=== PATIENT | female | born 1975 | race Caucasian/White ===

== ENCOUNTER 2022-08-01 10:41 | Outpatient (REF) | payer BC, SELFPAY ==
[2022-08-01 14:01] LABS: MANUAL DIFF FLAG NO
[2022-08-01 14:11] LABS: Basophils Absolute Auto 0.1 X10*3/uL (0.0-0.2); Basophils Percent Auto 1.4 % (0-2); Eosinophils Absolute Auto 0.4 X10*3/uL (0.0-0.4); Eosinophils Percent Auto 4.7 % (0-4); Hematocrit 41.2 % (37.0-47.0); Hemoglobin 13.1 g/dl (12.0-16.0); Imm Gran Abs Auto 0.02 X10*3/uL (0.00-0.03); Imm Gran Pct Auto 0.3 % (0.0-0.4); Lymphocytes Absolute Auto 1.2 X10*3/uL (1.2-4.9); Lymphocytes Percent Auto 16.8 % (20-40); Mean Corpuscular HGB Conc 31.8 g/dl (31.0-35.0); Mean Corpuscular Hemoglobin 27.7 pg (27.0-33.0); Mean Corpuscular Volume 87.1 fL (80.0-98.0); Mean Platelet Volume 11.8 fL (9.4-12.3); Monocytes Absolute Auto 0.4 X10*3/uL (0.1-1.2); Monocytes Percent Auto 5.3 % (2-11); Neutrophils Absolute Auto 5.3 x10*3/uL (2.0-8.3); Neutrophils Percent Auto 71.5 % (45-73); Platelet Count 293 X10*3/uL (160-400); Red Blood Count 4.73 X10*6/uL (4.20-5.50); Red Cell Distribution Width 14.2 % (11.0-16.0); White Blood Count 7.4 X10*3/uL (4.8-10.8)
[2022-08-01 14:24] LABS: Alanine Aminotransferase 16 U/L (0-31); Alkaline Phosphatase 77 U/L (39-117); Anion Gap 13 (12-20); Aspartate Amino Transferase 16 U/L (5-31); Bilirubin Total 0.5 mg/dL (0.0-1.0); Blood Urea Nitrogen 9 mg/dL (9-16); Carbon Dioxide 25 mmol/L (22-29); Chloride 105 mmol/L (96-108); Cholesterol 230 mg/dL; Estimated Glomerular Filt Rate > 60; Glucose Random 85 mg/dL (60-115); HDL Cholesterol 42 mg/dL; LDL Cholesterol Calculated 147 mg/dl; Sodium 139 mmol/L (135-145); Triglycerides 206 mg/dL
[2022-08-01 14:41] LABS: Free T4 (Free Thyroxine) 0.86 ng/dL (0.71-1.85); Thyroid Stimulating Hormone 11.05 uIU/mL (0.32-4.0)
== END 2022-08-01 10:42 | disposition home or self-care (01) ==
LOC: HO.10HDL 10:41
PROVIDERS: Visit Provider Internal Medicine
DX: Z00.00 Encounter for general adult medical examination without abnormal findings (principal); Z86.39 Personal history of other endocrine, nutritional and metabolic disease
CPT/HCPCS: 36415; 80053; 80061; 84439; 84443; 85025

== ENCOUNTER 2022-08-19 07:27 | Outpatient (REF) | payer BC, SELFPAY ==
[2022-08-19 07:50] LABS: MANUAL DIFF FLAG NO
[2022-08-19 08:05] LABS: Basophils Absolute Auto 0.1 X10*3/uL (0.0-0.2); Basophils Percent Auto 1.3 % (0-2); Eosinophils Absolute Auto 0.3 X10*3/uL (0.0-0.4); Eosinophils Percent Auto 5.3 % (0-4); Hematocrit 39.4 % (37.0-47.0); Hemoglobin 12.6 g/dl (12.0-16.0); Imm Gran Abs Auto 0.01 X10*3/uL (0.00-0.03); Imm Gran Pct Auto 0.2 % (0.0-0.4); Lymphocytes Absolute Auto 1.2 X10*3/uL (1.2-4.9); Lymphocytes Percent Auto 23.4 % (20-40); Mean Corpuscular Hemoglobin 26.9 pg (27.0-33.0); Mean Platelet Volume 10.8 fL (9.4-12.3); Monocytes Absolute Auto 0.8 X10*3/uL (0.1-1.2); Monocytes Percent Auto 14.9 % (2-11); Neutrophils Absolute Auto 2.9 x10*3/uL (2.0-8.3); Neutrophils Percent Auto 54.9 % (45-73); Platelet Count 230 X10*3/uL (160-400); Red Blood Count 4.69 X10*6/uL (4.20-5.50); Red Cell Distribution Width 14.3 % (11.0-16.0); White Blood Count 5.3 X10*3/uL (4.8-10.8)
[2022-08-19 08:27] LABS: Alanine Aminotransferase 19 U/L (0-31); Albumin Level 3.7 g/dL (3.5-5.0); Alkaline Phosphatase 76 U/L (39-117); Anion Gap 11 (12-20); Aspartate Amino Transferase 20 U/L (5-31); Bilirubin Direct 0.1 mg/dL (0.0-0.5); Bilirubin Total 0.4 mg/dL (0.0-1.0); Blood Urea Nitrogen 8 mg/dL (9-16); Calcium 8.4 mg/dL (8.4-10.2); Carbon Dioxide 23 mmol/L (22-29); Chloride 109 mmol/L (96-108); Cholesterol 174 mg/dL; Estimated Glomerular Filt Rate > 60; Glucose Random 95 mg/dL (60-115); HDL Cholesterol 38 mg/dL; LDL Cholesterol Calculated 119 mg/dl; Potassium 4.1 mmol/L (3.3-5.1); Sodium 139 mmol/L (135-145); Total Protein 7.2 g/dL (6.5-8.0); Triglycerides 89 mg/dL
[2022-08-21 04:11] LABS: HBsAGNum1 0.34 S/CO (0.00-0.99); Hepatitis B Core Antibody Nonreactive (Nonreactive); Hepatitis B Surface Antigen Negative (Negative); ~HepC Num1 0.25 S/CO (0.00-0.79); ~Hepatitis B Surface Antibody NONREACTIVE (Nonreactive); ~Hepatitis C Antibody Nonreactive (Nonreactive)
== END 2022-08-19 07:28 | disposition home or self-care (01) ==
LOC: HO.LAB 07:27
PROVIDERS: PCP Internal Medicine; Visit Provider Physician Assistant Medical
DX: L40.0 Psoriasis vulgaris (principal)
CPT/HCPCS: 36415; 80048; 80061; 80076; 85025; 86704; 86706; 86803; 87340

== ENCOUNTER 2022-08-30 16:10 | Outpatient (REF) | payer BC, SELFPAY ==
[2022-09-01 15:14] LABS: TS Negative Control Passed; TS Panel A 0; TS Panel B 0; TS Positive Control Passed; TSpotTB Negative (Negative)
== END 2022-08-30 16:11 | disposition home or self-care (01) ==
LOC: HO.LAB 16:10
PROVIDERS: PCP Internal Medicine; Visit Provider Physician Assistant Medical
DX: L40.0 Psoriasis vulgaris (principal)
CPT/HCPCS: 36415; 86481

== ENCOUNTER 2023-01-18 04:46 | Emergency (ER) | payer BC, SELFPAY ==
--- NOTE | 2023-01-18 | ECG_ITS ---
Test Reason : chest pain Blood Pressure : / mmHG Vent. Rate : 103 BPM Atrial Rate : 103 BPM P-R Int : 138 ms QRS Dur : 082 ms QT Int : 338 ms P-R-T Axes : 039 048 038 degrees QTc Int : 442 ms Sinus tachycardia Otherwise normal ECG No previous ECGs available Referred By: Generic ED Physician Electronically Signed By:DARIELA MUNGUIA
--- NOTE | ~2023-01-18 | XR_ITS ---
EXAMINATION: XR CHEST CLINICAL INFORMATION: Chest pain/shortness of breath COMPARISON: None available. TECHNIQUE: Frontal view of the chest was obtained. FINDINGS: Some minimal right basilar atelectasis is present. No significant abnormality is noted involving the heart, lungs, mediastinum, bony thorax or soft tissues. XR/XR chest 1V IMPRESSION: No acute intrathoracic disease.
[2023-01-18 04:55] VITALS: BP 146/92; PULSE 103; RESP 19; TEMP 36.4; O2SAT 98; BMI 46.2
[2023-01-18 05:04] LABS: Basophils Absolute Auto 0.1 X10*3/uL (0.0-0.2); Basophils Percent Auto 1.4 % (0-2); Eosinophils Absolute Auto 0.4 X10*3/uL (0.0-0.4); Eosinophils Percent Auto 7.5 % (0-4); Hematocrit 41.3 % (37.0-47.0); Hemoglobin 13.3 g/dl (12.0-16.0); Imm Gran Abs Auto 0.01 X10*3/uL (0.00-0.03); Imm Gran Pct Auto 0.2 % (0.0-0.4); Lymphocytes Absolute Auto 1.4 X10*3/uL (1.2-4.9); Lymphocytes Percent Auto 24.9 % (20-40); MANUAL DIFF FLAG NO; Mean Corpuscular HGB Conc 32.2 g/dl (31.0-35.0); Mean Corpuscular Hemoglobin 27.5 pg (27.0-33.0); Mean Corpuscular Volume 85.3 fL (80.0-98.0); Mean Platelet Volume 10.8 fL (9.4-12.3); Monocytes Absolute Auto 0.4 X10*3/uL (0.1-1.2); Monocytes Percent Auto 6.9 % (2-11); Neutrophils Absolute Auto 3.3 x10*3/uL (2.0-8.3); Neutrophils Percent Auto 59.1 % (45-73); Platelet Count 246 X10*3/uL (160-400); Red Blood Count 4.84 X10*6/uL (4.20-5.50); Red Cell Distribution Width 14.6 % (11.0-16.0); White Blood Count 5.6 X10*3/uL (4.8-10.8)
[2023-01-18 05:23] LABS: Alanine Aminotransferase 16 U/L (0-31); Albumin Level 3.8 g/dL (3.5-5.0); Alkaline Phosphatase 68 U/L (39-117); Anion Gap 13 (12-20); Aspartate Amino Transferase 15 U/L (5-31); Bilirubin Direct 0.2 mg/dL (0.0-0.5); Bilirubin Total 0.5 mg/dL (0.0-1.0); Blood Urea Nitrogen 9 mg/dL (9-16); Calcium 8.9 mg/dL (8.4-10.2); Carbon Dioxide 22 mmol/L (22-29); Chloride 109 mmol/L (96-108); Creatinine Clr Calc Pharmacy 109.3; Estimated Glomerular Filt Rate > 60; Glucose Random 105 mg/dL (60-115); Lipase 46 U/L (8-78); Potassium 3.9 mmol/L (3.3-5.1); Sodium 140 mmol/L (135-145); Total Protein 7.9 g/dL (6.5-8.0)
[2023-01-18 05:31] LABS: Troponin-I High Sensitivity < 2.7 ng/L (<3.5-17.0)
--- NOTE | 2023-01-18 06:32 | PC.NURSE ---
Pt a&o, reports having intermittent chest pain 5/10 no other symptoms, reports this is new for her, pt able to complete full sentence, ambulate with a steady gait, neuro are intact, no sign of distress. Will continue to monitor. Pt awaiting to be seen by provider.
[2023-01-18 07:23] VITALS: BP 108/90; PULSE 82; RESP 13; TEMP 36.7; O2SAT 95
[2023-01-18 08:33] LABS: D Dimer High Sensitivity < 150 NG/ML
[2023-01-18 08:55] LABS: Troponin-I High Sensitivity < 2.7 ng/L (<3.5-17.0)
--- NOTE | 2023-01-18 09:03 | ED_ITS ---
HPI - Chest Pain General Chief Complaint: Chest Pain Stated Complaint: chest discomfort Time Seen by Provider: 01/18/23 06:39 Source: patient Mode of arrival: ambulatory Limitations: no limitations History of Present Illness HPI narrative: This is a 47 year old female hx off obesity presenting to the ED w/ complaints of L sided CP and occasional SOB X2-3 months worsening. Sometimes pain radiates to LUE. Patient reports that at times she wakes from her sleep from discomfort and has had a lot of sleepless nights due to pain. Pain is present the majority of the time however not always present. Patient doesn't have a hx of PE or DVT. 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 Denies nausea, vomiting, abd pain, headache, vision changes, weakness, trauma, weakness. Related Data Previous Rx's Medication Instructions Recorded ketorolac 10 mg tablet 10 mg PO TID PRN pain 5 days #15 01/18/23 tabs Allergies Allergy/AdvReac Type Severity Reaction Status Date / Time Unable to Assess Allergy Unverified 01/18/23 06:43 Review of Systems 2 Review of Systems: Constitutional : No Weight loss, No Fever, No Chills, No Fatigue, No Malaise ENT/Mouth : No sore throat, No Rhinorrhea Eyes: No Eye Pain, No Swelling, No Redness Cardiovascular : + Chest Pain, + SOB, No Dyspnea on Exertion, No Orthopnea, No Edema, No Palpitations Respiratory : No Cough, No Sputum, No Wheezing Gastrointestinal : No Nausea, No Vomiting, No Diarrhea, No Constipation, No abdominal Pain, No Hematochezia, No Melena Genitourinary : No Dysuria, No Urinary Frequency, No Hematuria, Musculoskeletal : No joint pain, No Myalgias, No Joint Swelling Skin : No Skin Lesions, No rash Neuro : No Weakness, No Numbness, No Dizziness, No Headache Psych : No Anxiety/Panic, No Depression All other systems reviewed and are negative Yes all other systems are reviewed and are negative [facility] Past Medical History Attestation statement: The following information was validated with the patient. Source: old records reviewed and nursing notes reviewed Social History Social History Smoked in Last 30 Days: Yes Use of substances other than those prescribed or required for medical reasons: No Advance Directives: No Advance Directives Information Provided: Yes Physical Exam 2 Vital Signs: Vital Signs: Last Vital Signs Temp 98.1 F 09/21/23 07:23 Pulse 82 01/18/23 07:23 Resp 13 01/18/23 07:23 BP 108/90 H 01/18/23 07:23 Pulse Ox 95 01/18/23 07:23 O2 Del Method Room Air 01/18/23 07:23 BMI result Body Mass Index 46.2 vss Appearance: Alert.? Oriented X3.? No acute distress.? Head: Normocephalic, atraumatic, no step-offs or deformities Eyes: Pupils equal, round and reactive to light.? Neck: Normal inspection.? Neck supple.? CVS: Normal heart rate and rhythm.? Pulses normal.?Left anterior chest wall tenderness, reproducible with palpation. No overlying skin changes or edema. No crepitus or stepoffs. No flail chest. Respiratory: No respiratory distress.? Breath sounds normal.? Abdomen: Soft and nontender.? Skin: Skin warm and dry.? Normal skin color.? Normal skin turgor.? Extremities: No lower extremity edema.? No calf ttp. 5/5 strength to bilateral upper and lower extremities Neuro: Oriented X 3.? No motor deficit.? No sensory deficit. CN 2-12 intact Course Reevaluation(s) Reevaluation #1: CBC unremarkable. Chemistry no acute findings requiring intervention. Troponin negative x2 with nonischemic EKG. Lipase within normal limits. D-dimer negative no indication for CTA. Likely musculoskeletal pain. Pending chest x- ray. Time: 09:09 Reevaluation #2: X-ray no acute intrathoracic disease. Patient feeling better. I suspect this is noncardiac/musculoskeletal. Will discharge her with home Toradol. Educated patient on diagnosis and treatment plan, answered all question, patient verbalizes understanding. At this time patient will be discharged home, advised to return with new or worsening symptoms. Educated on worrisome signs and symptoms and when to return. At this time I feel comfortable discharge home. Time: 11:11 Medications Administered Discontinued Medications Generic Name Dose Route Start Last Admin Trade Name Freq PRN Reason Stop Dose Admin Ketorolac Tromethamine 30 mg 01/18/23 09:19 01/18/23 09:26 Ketorolac Tromethamine 15 Mg/Ml Vial IVPUSH 01/18/23 09:20 30 mg ONCE ONE Administration Medical Decision Making Medical Decision Making [facility] Narrative: 30 47 year old female presents w/ L sided cp and a/c sob PE benign, Left anterior chest wall tenderness, reproducible with palpation. No overlying skin changes or edema. No crepitus or stepoffs. No flail chest. Likely non cardiac related cp vs musculoskeletal pain versus viral illness. Unlikely PE, ACS, dissection, flail chest, pneumonia, pleural effusions. Unlikely CHF Plan labs, imaging Differential Diagnosis Differential Diagnoses: The differential diagnosis associated with the presentation includes Likely non cardiac related cp vs musculoskeletal pain versus viral illness. Unlikely PE, ACS, dissection, flail chest, pneumonia, pleural effusions. Unlikely CHF Admission/Observation Consideration of admission/observation: Escalation of care including admission/observation considered Unlikely Lab Data [facility] Lab Attestation statement: I reviewed the patient's lab results. 01/18/23 04:59 01/18/23 04:59 Labs: Lab Results 01/18/23 01/18/23 Range/Units 04:59 08:17 WBC 5.6 (4.8-10.8) X10*3/uL RBC 4.84 (4.20-5.50) X10*6/uL Hgb 13.3 (12.0-16.0) g/dl Hct 41.3 (37.0-47.0) % MCV 85.3 (80.0-98.0) fL MCH 27.5 (27.0-33.0) pg MCHC 32.2 (31.0-35.0) g/dl RDW 14.6 (11.0-16.0) % Plt Count 246 (160-400) X10*3/uL MPV 10.8 (9.4-12.3) fL Immature Gran % (Auto) 0.2 (0.0-0.4) % Neut % (Auto) 59.1 (45-73) % Lymph % (Auto) 24.9 (20-40) % Dickens % (Auto) 6.9 (2-11) % Eos % (Auto) 7.5 H (0-4) % Baso % (Auto) 1.4 (0-2) % Lymph # (Auto) 1.4 (1.2-4.9) X10*3/uL Dickens # (Auto) 0.4 (0.1-1.2) X10*3/uL Eos # (Auto) 0.4 (0.0-0.4) X10*3/uL Baso # (Auto) 0.1 (0.0-0.2) X10*3/uL Abs Immat Gran (auto) 0.01 (0.00-0.03) X10*3/uL Absolute Neuts (auto) 3.3 (2.0-8.3) x10*3/uL Absolute Nucleated RBC 0.000 (0.0-0.012) X10*3/uL Nucleated RBC % (auto) 0.0 (0.0-0.2) /100WBC D-Dimer High Sensitivty < 150 NG/ML Sodium 140 (135-145) mmol/L Potassium 3.9 (3.3-5.1) mmol/L Chloride 109 H (96-108) mmol/L Carbon Dioxide 22 (22-29) mmol/L Anion Gap 13 (12-20) BUN 9 (9-16) mg/dL Creatinine 0.86 (0.5-1.4) mg/dL Estim Creat Clear Calc 109.3 Estimated GFR > 60 Random Glucose 105 (60-115) mg/dL Calcium 8.9 (8.4-10.2) mg/dL Total Bilirubin 0.5 (0.0-1.0) mg/dL Direct Bilirubin 0.2 (0.0-0.5) mg/dL AST 15 (5-31) U/L ALT 16 (0-31) U/L Alkaline Phosphatase 68 (39-117) U/L Troponin I High Sens < 2.7 < 2.7 (<3.5-17.0) ng/L Total Protein 7.9 (6.5-8.0) g/dL Albumin 3.8 (3.5-5.0) g/dL Lipase 46 (8-78) U/L Independent Interpretation I performed an independent interpretation of an: EKG (Jugular rate of 103, AR normal, QRS normal, QT/QTC normal. EKG normal sinus rhythm no ST elevations or inversions concerning for acute ischemia) and Plain X-Ray Radiology Impression Discussion of test interpretation with radiology: I have reviewed the radiologist's reading. Prescription Management I considered prescription management with: Pain Medication Discharge Plan Discharge Clinical Impression: Chest pain, Shortness of breath Patient Disposition: Home, Self-Care Instructions: Chest Pain (ED), Chest Wall Pain (ED) Additional Instructions: Take your medications as prescribed. If you were prescribed antibiotics today, it is important that you take your medication to their entirety, do not skip any doses, do not finish them early. Follow-up with your primary care provider this week. Return to the emergency department with new or worsening symptoms. Such as fevers, chills, chest pain, shortness of breath, nausea, vomiting, dizziness, headache, vision changes, lethargy In case of emergency call 911 Prescriptions: New ketorolac 10 mg tablet 10 mg PO TID PRN (Reason: pain) 5 Days Qty: 15 0RF Referrals: Physician,Unknown J [Primary Care Provider] - 2 days Stand Alone Forms: Work/School Release Interventions: ED Discharge Assessment Last Done: 01/18/23 10:48 Discharge Date/Time: 01/18/23 10:50
[2023-01-18] MEDS: Ketorolac Tromethamine 15 MG/ML VIAL 30 MG IVPUSH (09:26)
== END 2023-01-18 10:50 | disposition home or self-care (01) ==
PROVIDERS: Physician Assistant; Emergency Provider Emergency Medicine
DX: R07.9 Chest pain, unspecified (principal); R06.02 Shortness of breath
CPT/HCPCS: 36415; 71045; 80048; 80076; 83690; 84484; 85025; 85379; 93005; 96374; 99284; 99285; J1885

== ENCOUNTER 2023-01-23 06:16 | Outpatient (REF) | payer BC, SELFPAY ==
[2023-01-23 08:07] LABS: Cholesterol 191 mg/dL (<200); HDL Cholesterol 44 mg/dL (>40); LDL Cholesterol Calculated 122 mg/dL (<100); Triglycerides 126 mg/dL (<150)
[2023-01-23 08:28] LABS: Free T4 (Free Thyroxine) 0.88 ng/dL (0.71-1.85); Thyroid Stimulating Hormone 7.99 uIU/mL (0.32-4.0)
[2023-01-25 05:48] LABS: Thyroid Peroxidase Antibodies 1 IU/mL (<9)
== END 2023-01-23 06:17 | disposition home or self-care (01) ==
LOC: HO.LAB 06:16
PROVIDERS: PCP Internal Medicine; Visit Provider Internal Medicine
DX: E03.9 Hypothyroidism, unspecified (principal); E78.00 Pure hypercholesterolemia, unspecified
CPT/HCPCS: 36415; 80061; 84439; 84443; 86376

== ENCOUNTER 2024-02-18 10:20 | Outpatient (REF) | payer SELFPAY ==
--- NOTE | ~2024-02-18 | XR_ITS ---
EXAMINATION: XR CHEST 2 VIEWS CLINICAL INFORMATION: Cough rule out pneumonia. Patient states persistent cold and flu symptoms. COMPARISON: XR Chest 01/18/2023 TECHNIQUE: 2 views of the chest were obtained. FINDINGS: The lungs are well expanded. There is airspace consolidation in the right middle lobe silhouetting the right heart border. No pleural effusion. Cardiac silhouette is within normal limits. XR/XR chest 2V IMPRESSION: Right middle lobe pneumonia. Follow-up until resolution is advised. Electronically signed by: Colin Hess MD 04/10/2024 01:56 PM [facility]
[2024-02-18 11:14] LABS: MANUAL DIFF FLAG NO
[2024-02-18 11:33] LABS: Basophils Absolute Auto 0.1 X10*3/uL (0.0-0.2); Basophils Percent Auto 1.1 % (0-2); Eosinophils Absolute Auto 0.6 X10*3/uL (0.0-0.4); Eosinophils Percent Auto 6.8 % (0-4); Hematocrit 39.6 % (37.0-47.0); Hemoglobin 13.1 g/dl (12.0-16.0); Imm Gran Abs Auto 0.04 X10*3/uL (0.00-0.03); Imm Gran Pct Auto 0.5 % (0.0-0.4); Lymphocytes Absolute Auto 1.3 X10*3/uL (1.2-4.9); Lymphocytes Percent Auto 16.5 % (20-40); Mean Corpuscular HGB Conc 33.1 g/dl (31.0-35.0); Mean Corpuscular Hemoglobin 29.4 pg (27.0-33.0); Mean Corpuscular Volume 88.8 fL (80.0-98.0); Mean Platelet Volume 10.7 fL (9.4-12.3); Monocytes Absolute Auto 0.4 X10*3/uL (0.1-1.2); Monocytes Percent Auto 5.3 % (2-11); Neutrophils Absolute Auto 5.6 x10*3/uL (2.0-8.3); Neutrophils Percent Auto 69.8 % (45-73); Platelet Count 261 X10*3/uL (160-400); Red Blood Count 4.46 X10*6/uL (4.20-5.50); Red Cell Distribution Width 14.2 % (11.0-16.0)
[2024-02-18 12:33] LABS: Alanine Aminotransferase 24 U/L (0-31); Albumin Level 3.9 g/dL (3.5-5.0); Alkaline Phosphatase 62 U/L (39-117); Anion Gap 13 (12-20); Aspartate Amino Transferase 29 U/L (5-31); Bilirubin Total 0.4 mg/dL (0.0-1.0); Blood Urea Nitrogen 9 mg/dL (9-16); Calcium 8.9 mg/dL (8.4-10.2); Carbon Dioxide 24 mmol/L (22-29); Chloride 106 mmol/L (96-108); Cholesterol 223 mg/dL (<200); Estimated Glomerular Filt Rate > 60; Glucose Random 86 mg/dL (60-115); Sodium 139 mmol/L (135-145); Total Protein 8.2 g/dL (6.5-8.0)
[2024-02-18 12:54] LABS: Free T4 (Free Thyroxine) 0.72 ng/dL (0.71-1.85); Thyroid Stimulating Hormone 14.32 uIU/mL (0.32-4.0)
== END 2024-02-18 10:21 | disposition home or self-care (01) ==
LOC: HO.XRAY 10:20
PROVIDERS: PCP Internal Medicine; Visit Provider Internal Medicine
DX: J45.909 Unspecified asthma, uncomplicated (principal); R05.9 Cough, unspecified; L40.9 Psoriasis, unspecified; E03.9 Hypothyroidism, unspecified
CPT/HCPCS: 36415; 71046; 80053; 82465; 84439; 84443; 85025

== ENCOUNTER 2024-09-12 15:04 | Outpatient (AMB) | payer BC, SELFPAY ==
--- NOTE | 2024-09-12 15:07 | MHC.PC.OV ---
Vital Signs 09/12/24 15:11 09/12/24 15:55 Height 5 ft 6 in Weight 134.263 kg BMI 47.8 BP 146/88 H 132/90 H Respiration 18 Pulse 98 Pulse Source Pulse Oximeter Temp 98.4 F Temp Source Temporal Artery Scan Pulse Oximetry (%) 99 Oxygen Delivery Method Room Air Intake Visit Reasons: Routine - see comments Inspector Quality Assurance Required: No Accompanied by: Self / Same As Patient Allergies Unable to Assess Allergy (Unverified 09/12/24 15:10) Medication List - Last Reconciled 09/12/24 by HECTOR Sullivan clobetasol 0.05% 1 appl topical BID fluticasone propion-salmeterol 100-50 mcg/dose (Wixela Inhub) inhalation levothyroxine 75 mcg PO DAILY ondansetron 4 mg PO Q8H PRN tirzepatide (Mounjaro) 2.5 mg (0.5 mL) subcut QWEEK HPI HPI Comments History of Present Illness Details 49-year-old female with history of hypothyroidism, psoriasis, mild intermittent asthma psoriasis, 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 She is concerned about her weight. Currently weighs 295 lb and has been working hard to lose weight. She has not lost or gained any weight since her last visit in January of last year. She has been eating healthier, bringing her own lunch which will consist of a low-calorie wrap, salad, cheese and pepperoni. She states she previously was eating fast food and snacks. She does follow healthy dinner but reports eating late secondary to her work schedule. Her job is sedentary but she has also been trying to go to the gym 4 times weekly. She has been only the treadmill with a 2% incline for 35 minutes and then circuit training as well as a rowing machine. She has also had significant life stress. She reports exercising is difficult secondary to her sciatica and footdrop related to the nerve sheath tumor. She did follow with [facility] who recommended surgery to remove the tumor however given the relation to the L5 nerve root was told she could possibly end up paralyzed and ultimately did not go through with the procedure at the recommendation of the neurosurgeon. Biopsy was benign She had also been following with a cigar packer and picker but states she needs a new referral due to insurance issues. She had been using high-dose clobetasol for her psoriasis and is not getting any relief. She states she was supposed to be starting an injection though she is not sure of the name for the psoriasis. [facility] Medical History (Updated 09/12/24 @ 16:01 by HECTOR Sullivan) Hypertension Left foot drop Left sided sciatica Psoriasis Morbid obesity Hypothyroidism Review of Systems Const All systems reviewed & are unremarkable except as noted in HPI and below Physical exam (Primary Care) Vital Signs: Last Vital Signs Temp 98.4 F 09/12/24 15:11 Pulse 98 09/12/24 15:11 Resp 18 09/12/24 15:11 BP 132/90 H 09/12/24 15:55 Pulse Ox 99 09/12/24 15:11 Oxygen Delivery Method Room Air 09/12/24 15:11 BMI result Body Mass Index 47.8 Const Other: Constitutional - Awake and Alert, No apparent distress Eyes - PERRL, exophthalmos Cardiovascular - S1S2, RRR, No edema Respiratory - Normal lung expansion, Normal respiratory effort, No respiratory distress, CTA bilaterally Extremities - no calf tenderness bilaterally, no swelling Skin - Warm/Dry Neurological - Alert & oriented x3, left foot drop, 4/5 strength LLE Psychological - Appropriate affect Coding Level of Care Code New Pt Level 4 (24429) Complex EM visit Add On G2211 Diagnoses Hypothyroidism E03.9 Morbid obesity E66.01 Psoriasis L40.9 Hypertension I10 Left sided sciatica M54.32 Assessment & Plan Assessment & Plan (1) Hypothyroidism: Code(s): E03.9 - Hypothyroidism, unspecified Category: Medical Plan: TSH with reflex free T4 ordered. Continue levothyroxine, dose to be adjusted as appropriate pending results. We will continue working on weight loss as below (2) Morbid obesity: Code(s): E66.01 - Morbid (severe) obesity due to excess calories Category: Medical Plan: Has a making significant efforts towards weight loss with limited results. Encouraged to continue with healthy diet rich in protein, vegetables, and fruits. Avoid unhealthy fats, sugars, and highly processed foods. Encouraged to continue with her routine at the gym. Exercise unfortunately is limited given her history of the nerve sheath tumor contiguous with the L5 nerve root resulting in significant physical disability in the left lower extremity. I do feel the patient would benefit from a GLP 1 agonist to prevent morbidity and mortality and as a result have ordered tirzepatide. (3) Psoriasis: Code(s): L40.9 - Psoriasis, unspecified Category: Medical Plan: Unresponsive to super high potency steroids. Referred to Dermatology for further evaluation and management. It is likely the patient will require T spot prior to initiating any biologic therapy which is ordered for future collection. (4) Hypertension: Code(s): I10 - Essential (primary) hypertension Category: Medical Plan: New onset. Improved with recheck to 132/90. Recommend continuing efforts towards weight loss and will recheck blood pressure in 1 month. If this remains elevated, we will consider antihypertensive therapy. Recommend ongoing lifestyle modifications as above. (5) Left sided sciatica: Code(s): M54.32 - Sciatica, left side Category: Medical Plan: Complicated by nerve sheath tumor. Advised to follow-up with neurosurgery should symptoms progress. Otherwise, we will manage with lifestyle modifications such as regular exercise and Tylenol/ibuprofen as needed. Plan Follow-up in 1 month to discuss weight loss as well as hypertension. Labs to be completed today. Referral placed to Dermatology. Will trial GLP 1 for weight loss. Orders: Orders Basic Metabolic Panel Today E03.9 - Hypothyroidism, unspecified, E66.01 - Morbid (severe) obesity due to excess calories, L40.9 - Psoriasis, unspecified, Z13.1 - Encounter for screening for diabetes mellitus, Z13.220 - Encounter for screening for lipoid disorders Complete Blood Count Auto Diff Today E03.9 - Hypothyroidism, unspecified, E66.01 - Morbid (severe) obesity due to excess calories, L40.9 - Psoriasis, unspecified, Z13.1 - Encounter for screening for diabetes mellitus, Z13.220 - Encounter for screening for lipoid disorders Hemoglobin A1c Today E03.9 - Hypothyroidism, unspecified, E66.01 - Morbid (severe) obesity due to excess calories, L40.9 - Psoriasis, unspecified, Z13.1 - Encounter for screening for diabetes mellitus, Z13.220 - Encounter for screening for lipoid disorders Lipid Panel Today E03.9 - Hypothyroidism, unspecified, E66.01 - Morbid (severe) obesity due to excess calories, L40.9 - Psoriasis, unspecified, Z13.1 - Encounter for screening for diabetes mellitus, Z13.220 - Encounter for screening for lipoid disorders TSH reflex Free T4 Today E03.9 - Hypothyroidism, unspecified, E66.01 - Morbid (severe) obesity due to excess calories, L40.9 - Psoriasis, unspecified, Z13.1 - Encounter for screening for diabetes mellitus, Z13.220 - Encounter for screening for lipoid disorders Liver Panel Today E03.9 - Hypothyroidism, unspecified, E66.01 - Morbid (severe) obesity due to excess calories, L40.9 - Psoriasis, unspecified, Z13.1 - Encounter for screening for diabetes mellitus, Z13.220 - Encounter for screening for lipoid disorders Vitamin D 25-OH Total Today E03.9 - Hypothyroidism, unspecified, E66.01 - Morbid (severe) obesity due to excess calories, L40.9 - Psoriasis, unspecified, Z13.1 - Encounter for screening for diabetes mellitus, Z13.220 - Encounter for screening for lipoid disorders T Spot TB 09/15/24 Z11.1 - Encounter for screening for respiratory tuberculosis Referrals Dermatology Referral L40.9 - Psoriasis, unspecified Medications: New ondansetron 4 mg PO Q8H PRN 30 tabs 0RF nausea and vomiting tirzepatide (Mounjaro) for 4 weeks 2.5 mg (0.5 mL) subcut QWEEK 2 mL 0RF E66.01 - Morbid (severe) obesity due to excess calories, M21.372 - Foot drop, left foot, M54.32 - Sciatica, left side
[2024-09-12 15:11] VITALS: BP 146/88; PULSE 98; RESP 18; TEMP 36.9; O2SAT 99; BMI 47.8
[2024-09-12 15:55] VITALS: BP 132/90
== END 2024-09-12 16:03 | disposition home or self-care (01) ==
LOC: HO.HMCHD 15:05
PROVIDERS: PCP Physician Assistant; Visit Provider Physician Assistant
DX: E03.9 Hypothyroidism, unspecified (principal); E66.01 Morbid (severe) obesity due to excess calories; L40.9 Psoriasis, unspecified; I10 Essential (primary) hypertension; M54.32 Sciatica, left side

== ENCOUNTER 2024-09-12 15:04 | Outpatient (REF) | payer BC, SELFPAY ==
[2024-09-12 16:31] LABS: MANUAL DIFF FLAG NO
[2024-09-12 16:44] LABS: Basophils Absolute Auto 0.1 X10*3/uL (0.0-0.2); Eosinophils Absolute Auto 0.6 X10*3/uL (0.0-0.4); Eosinophils Percent Auto 7.7 % (0-4); Hematocrit 38.7 % (37.0-47.0); Imm Gran Abs Auto 0.04 X10*3/uL (0.00-0.03); Imm Gran Pct Auto 0.5 % (0.0-0.4); Lymphocytes Absolute Auto 1.6 X10*3/uL (1.2-4.9); Mean Corpuscular HGB Conc 33.6 g/dl (31.0-35.0); Mean Corpuscular Hemoglobin 29.1 pg (27.0-33.0); Mean Corpuscular Volume 86.8 fL (80.0-98.0); Mean Platelet Volume 10.5 fL (9.4-12.3); Monocytes Absolute Auto 0.5 X10*3/uL (0.1-1.2); Monocytes Percent Auto 6.5 % (2-11); Neutrophils Absolute Auto 5.1 x10*3/uL (2.0-8.3); Neutrophils Percent Auto 64.3 % (45-73); Platelet Count 251 X10*3/uL (160-400); Red Blood Count 4.46 X10*6/uL (4.20-5.50); Red Cell Distribution Width 13.6 % (11.0-16.0)
[2024-09-12 16:45] LABS: Estimated Average Glucose 103 mg/dL; Hemoglobin A1C 113.4291 umol/L; Hemoglobin A1c % 5.2 % (<6.0); Total Hemoglobin (HGBA1C) 3374.1203 umol/L
[2024-09-12 17:10] LABS: Alanine Aminotransferase 18 U/L (0-31); Albumin Level 3.8 g/dL (3.5-5.0); Alkaline Phosphatase 65 U/L (39-117); Anion Gap 13 (12-20); Aspartate Amino Transferase 19 U/L (5-31); Bilirubin Direct 0.1 mg/dL (0.0-0.5); Bilirubin Total 0.4 mg/dL (0.0-1.0); Blood Urea Nitrogen 10 mg/dL (9-16); Calcium 8.7 mg/dL (8.4-10.2); Carbon Dioxide 22 mmol/L (22-29); Chloride 108 mmol/L (96-108); Cholesterol 211 mg/dL (<200); Estimated Glomerular Filt Rate > 60; Glucose Random 81 mg/dL (60-115); HDL Cholesterol 47 mg/dL (>40); LDL Cholesterol Calculated 136 mg/dL (<100); Potassium 3.8 mmol/L (3.3-5.1); Sodium 139 mmol/L (135-145); Total Protein 8.2 g/dL (6.5-8.0); Triglycerides 142 mg/dL (<150)
[2024-09-12 17:26] LABS: TSH reflex Free T4 11.28 uIU/mL (0.32-4.0); Vitamin D 25-OH Total 9.4 ng/mL (>30)
[2024-09-12 18:01] LABS: Free T4 (Free Thyroxine) 0.98 ng/dL (0.71-1.85)
[2024-09-15 17:03] LABS: TS Negative Control Passed; TS Panel A 1; TS Panel B 0; TS Positive Control Passed; TSpotTB Negative (Negative)
== END 2024-09-12 15:05 | disposition home or self-care (01) ==
LOC: HO.LAB 15:04
PROVIDERS: PCP Physician Assistant; Visit Provider Physician Assistant
DX: E66.01 Morbid (severe) obesity due to excess calories (principal); E03.9 Hypothyroidism, unspecified; Z13.1 Encounter for screening for diabetes mellitus; Z13.220 Encounter for screening for lipoid disorders; L40.9 Psoriasis, unspecified; Z11.1 Encounter for screening for respiratory tuberculosis
CPT/HCPCS: 36415; 80048; 80061; 80076; 82306; 83036; 84439; 84443; 85025; 86481

== ENCOUNTER 2024-10-14 07:54 | Outpatient (AMB) | payer BC, SELFPAY ==
[2024-10-14 07:57] VITALS: BP 130/74; PULSE 100; TEMP 36.6; O2SAT 98; BMI 46.6
--- NOTE | 2024-10-14 07:57 | A.OFFPC_ITS ---
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: No Accompanied by: Self / Same As Patient Allergies Unable to Assess Allergy (Verified 10/14/24 07:58) Medication List - Last Reconciled 10/14/24 by HECTOR Sullivan cholecalciferol (vitamin D3) 1,250 mcg PO QWEEK clobetasol 0.05% 1 appl topical BID fluticasone propion-salmeterol 100-50 mcg/dose (Wixela Inhub) inhalation levothyroxine 100 mcg PO DAILY ondansetron 4 mg PO Q8H PRN tirzepatide (Mounjaro) 2.5 mg (0.5 mL) subcut QWEEK Tobacco use date assessed: 10/14/24 Dental Screening Dental Screen Date: 10/14/24 Did you have a dental visit in the last 12 months?: Yes Did you have a dental problem in the last 6 months where you did not have access to dental care?: No HPI HPI Comments History of Present Illness Details 49-year-old female with history of hyper tension, hypothyroidism, left-sided sciatica, psoriasis, and morbid obesity with BMI greater than 46 presents to the office today for follow-up. Hypertension-not currently on antihypertensives. Has been working on lifestyle changes. Blood pressure in the office today controlled at 130/74. Left-sided sciatica-history of nerve sheath tumor. Reports ongoing bilateral low back pain that effects when walking, standing for prolonged periods. She would be interested in physical therapy. No bowel/bladder dysfunction, saddle anesthesia, paresthesias. Psoriasis-has been using the clobetasol again which has been helping more than previous. She does have rash but improvement in scaling and itching. She feels that being out in the sun has also been helpful. She is still awaiting appointment with Dermatology. Morbid obesity-BMI 46.6. Appears to have lost about 6 lb since last visit last month. She has started her appetite 2.5 mg weekly, 1st dose administered last week. Tolerating well, no adverse side effects. She does report decreased appetite and has been following healthy diet. She does also continue exercising 3 times weekly at gym. Hypothyroidism-TSH elevated greater than 11 with normal free T4. Does report she is taking her medication correctly every morning by itself. ROS: General: No fevers, malaise, unintentional weight loss HEENT: No blurred vision, diplopia. No sore throat, nasal congestion, rhinorrhea, sinus pain, ear pain Cardiovascular: No chest pain, palpitations, or leg edema Respiratory: No shortness of breath, wheezing, cough GI: No abdominal pain, nausea, vomiting, diarrhea, constipation, melena, hematochezia : No dysuria, hematuria, increased urinary frequency, decreased urinary output MSK: See HPI Neuro: No headaches, weakness, paresthesias Skin: No rashes or lesions EXAM: Constitutional - Awake and Alert, No apparent distress Eyes - PERRL Cardiovascular - S1S2, RRR, No edema Respiratory - Normal lung expansion, Normal respiratory effort, No respiratory distress, CTA bilaterally Extremities - no calf tenderness bilaterally, no swelling Skin - Warm/Dry Neurological - Alert & oriented x3 Psychological - Appropriate affect . [facility] Medical History Vitamin D deficiency Hypertension Left foot drop Left sided sciatica Psoriasis Morbid obesity Hypothyroidism Family History (Updated 10/14/24 @ 08:06 by Shena Mendoza MA) Mother No problems noted. Father No problems noted. Social History Housing: House Patient Tobacco Use Status: Former Tobacco user e-Cigarette/Vaping Use: Former Use service: No Current occupational status: employed Cognitive needs: No Hearing needs: No Vision needs: No Questionnaire PHQ-9 Over the last 2 weeks, how often have you been bothered by any of the following problems? 1. Little interest or pleasure in doing things: not at all 2. Feeling down, depressed, or hopeless: not at all 3. Trouble falling or staying asleep, or sleeping too much: not at all 4. Feeling tired or having little energy: not at all 5. Poor appetite or overeating: not at all 6. Feeling bad about yourself - or that you are a failure or have let yourself or your family down: not at all 7. Trouble concentrating on things, such as reading the newspaper or watching television: not at all 8. Moving or speaking so slowly that other people could have noticed. Or the opposite - being so fidgety or restless that you have been moving around a lot more than usual: not at all 9. Thoughts that you would be better off or of hurting yourself in some way: not at all Total score: 0 Source: Developed by Drs. Fermin Alicea, Janet Lan, Perry Huffman and colleagues, with an educational garry from [employer]. Thrive Questionnaire Date Thrive assessed: 10/14/24 I am a: Patient Within the past 12 months, did the food you bought not last and you didn't have the money to get more?: Never true Within the past 12 months, did you worry whether your food would run out before you got money to buy more?: Never true Do you have trouble paying for medicines?: No Do you have trouble getting transportation to medical appointments?: No Do you have trouble paying your heating and electricity bill?: No Do you have trouble taking care of your child, family member or friend?: No Do you have trouble with day-to-day activities such as bathing, preparing meals, shopping, managing finances, etc.?: No Are you currently unemployed and looking for a job?: No Are you interested in more education?: No THRIVE Score: 0 AUDIT C Alcohol Use Questionnaire (AUDIT-C) 1. How often do you have a drink containing alcohol?: Never 3. How often do you have six or more drinks on one occasion?: Never Total Score: 0 NAVID-7 AMB Questionnaire NAVID-7 Date NAVID - 7 assessed: 10/14/24 Feeling nervous, anxious, or on edge: 0 = Not at all Not being able to stop or control worryin = Not at all Worrying too much about different things: 0 = Not at all Trouble relaxin = Not at all Being so restless that it is hard to sit still: 0 = Not at all Becoming easily annoyed or irritable: 0 = Not at all Feeling afraid as if something awful might happen: 0 = Not at all Total NAVID-7 score (0-4 normal; 5-9 mild; 10-14 moderate; 15-21 severe): 0 Source: Developed by Drs. Fermin Alicea, Janet Lan, Perry Huffman and colleagues, with an educational garry from [employer]. Physical exam (Primary Care) Tobacco/Smoking Status: Tobacco use Status Tobacco use date assessed 10/14/24 10/14/24 07:59 Patient Tobacco Use Status Never used Tobacco 10/14/24 07:59 e-Cigarette/Vaping Use Never Used 10/14/24 07:59 PHQ-9: PHQ-9 Score PHQ-9: Total score 0 10/14/24 07:59 Thrive Assessment: Date of Thrive Assessment Date Thrive assessed 10/14/24 10/14/24 07:59 Coding Level of Care Code Est Pt Level 4 (31119) Complex EM visit Add On G2211 Diagnoses Hypertension I10 Left sided sciatica M54.32 Psoriasis L40.9 Morbid obesity E66.01 Hypothyroidism E03.9 Assessment & Plan Assessment & Plan (1) Hypertension: Code(s): I10 - Essential (primary) hypertension Category: Medical Plan: Controlled with blood pressure 130/78. Continue lifestyle modifications. We will continue monitoring (2) Left sided sciatica: Code(s): M54.32 - Sciatica, left side Category: Medical Plan: Continue with p.r.n. analgesics. Referred to physical therapy. Continue with weight loss efforts (3) Psoriasis: Code(s): L40.9 - Psoriasis, unspecified Category: Medical Plan: Continue clobetasol 0.05% twice daily. Referral placed to dermatology (4) Morbid obesity: Code(s): E66.01 - Morbid (severe) obesity due to excess calories Category: Medical Plan: Will increase his appetite to 5 mg weekly. Monitor for effects as well as side effects. Continue with healthy diet as well as regular exercise routine (5) Hypothyroidism: Code(s): E03.9 - Hypothyroidism, unspecified Category: Medical Plan: Uncontrolled. Increase levothyroxine to 112 mcg daily. Reassess labs have following visit Plan Follow-up in the office in 6 months, sooner if needed. Will increase dose of to his appetite. Labs to be completed prior to next visit. Orders: Orders PT Evaluation and Treatment Today M54.32 - Sciatica, left side Basic Metabolic Panel 6 Months E03.9 - Hypothyroidism, unspecified, E78.5 - Hyperlipidemia, unspecified, I10 - Essential (primary) hypertension Lipid Panel 6 Months E03.9 - Hypothyroidism, unspecified, E78.5 - Hyperlipidemia, unspecified, I10 - Essential (primary) hypertension TSH reflex Free T4 6 Months E03.9 - Hypothyroidism, unspecified, E78.5 - Hyperlipidemia, unspecified, I10 - Essential (primary) hypertension Medications: New clobetasol 0.05% 1 appl topical BID 60 grams 1RF levothyroxine 112 mcg PO DAILY 90 tabs 1RF [tirzepatide 5 mg/0.5 mL] vial 5 mg subcut QWEEK 2 mL 1RF Discontinued levothyroxine Discontinued Reason: Doctor's Order 100 mcg PO DAILY 90 caps 1RF
== END 2024-10-14 08:19 | disposition home or self-care (01) ==
LOC: HO.HMCHD 07:55
PROVIDERS: PCP Physician Assistant; Visit Provider Physician Assistant
DX: I10 Essential (primary) hypertension (principal); M54.32 Sciatica, left side; L40.9 Psoriasis, unspecified; E66.01 Morbid (severe) obesity due to excess calories; E03.9 Hypothyroidism, unspecified

== ENCOUNTER → 2024-10-14 07:54 | Outpatient (BNVA) | payer BC, SELFPAY | PROVIDERS: PCP Physician Assistant; Visit Provider Physician Assistant ==